=== PATIENT | female | born 1980 | race Caucasian/White ===

== ENCOUNTER 2020-10-10 01:55 | Emergency (ER) | payer BC ==
[2020-10-10] MEDS ORDERED: LIDOCAINE 1% INJ-PF (10 MG/ML) 30 ML SDV INJ ONE (03:00)
--- NOTE | 2020-10-10 04:48 | ER Document Report ---
HPI - HPI Time Seen by Provider: 10/10/20 03:00 Pain Level: 5 Context: Patient is a 40-year-old female presents emergency department with a chief complaint of a laceration to her inferior chin. Patient was drinking alcohol tonight and ended up tripping and falling and hitting her chin on the concrete. - ROS Systems Reviewed and Negative: Yes All other systems reviewed and negative - CONSTITUTIONAL Constitutional: DENIES: Fever, Chills - NEURO Neurology: DENIES: Headache, Weakness, Vision blurred - RESPIRATORY Respiratory: DENIES: Trouble Breathing, Coughing - GASTROINTESTINAL Gastrointestinal: DENIES: Abdominal Pain, Nausea, Patient vomiting - REPRODUCTIVE LMP: 10/03/20 Reproductive: DENIES: : - MUSCULOSKELETAL Musculoskeletal: DENIES: Extremity pain - DERM Skin Color: Normal Skin Problems: Laceration - Chin Past Medical History - General Information source: Patient - Social History Smoking Status: Never Smoker Family History: Reviewed & Not Pertinent Vertical Provider Document - CONSTITUTIONAL Agree With Documented VS: Yes Exam Limitations: No Limitations General Appearance: No Apparent Distress - HEENT HEENT: Normocephalic, PERRLA. negative: Atraumatic - Chin laceration - NECK Neck: Normal Inspection, Supple - RESPIRATORY Respiratory: Breath Sounds Normal, No Respiratory Distress - CARDIOVASCULAR Cardiovascular: Regular Rate, Regular Rhythm Pulses: Normal: Radial - MUSCULOSKELETAL/EXTREMETIES Musculoskeletal/Extremeties: FROM - NEURO Level of Consciousness: Awake, Alert, Appropriate Motor/Sensory: No Motor Deficit, No Sensory Deficit - DERM Integumentary: Warm, Dry, No Rash Course - Re-evaluation Re-evalutation: 10/10/20 05:52 CT of the head is unremarkable. CT of the cervical spine is also unremarkable. No facial bone fractures noted by the radiologist. See procedure note. Follow- up precautions were given. Verbal discharge instructions were given to the patient. They verbalized understanding. They are stable for discharge. - Vital Signs Vital signs: Temp Pulse Resp BP Pulse Ox 97.5 F 83 17 101/75 99 10/10/20 02:24 10/10/20 02:24 10/10/20 02:24 10/10/20 02:24 10/10/20 02:24 - Laboratory Results Critical Laboratory Results Reviewed: No Critical Results - Radiology Results Critical Radiology Results Reviewed: No Critical Results Procedures - Laceration/Wound Repair Inferior chin Wound length (cm): 2 Wound's Depth, Shape: Flap Laceration pre-procedure: Sterile PPE donned, Mickie-Clens applied Anesthetic type: 1% Lidocaine Volume Anesthetic (mLs): 4 Wound explored: Clean, No foreign body removed Irrigated w/ Saline (mLs): 200 Wound Repaired With: Sutures Suture Size/Type: 5:0, Nylon Number of Sutures: 6 Post-procedure wound care: Sterile dressing applied Adult Head Front/Back picture: 1 - Laceration Discharge - Discharge Clinical Impression: Chin laceration Qualifiers: Encounter type: initial encounter Qualified Code(s): S01.81XA - Laceration without foreign body of other part of head, initial encounter Condition: Stable Disposition: HOME, SELF-CARE Instructions: Laceration Care ([facility]) Additional Instructions: Please return to your primary doctor, the ED, or an urgent care in 5 days for suture removal. Return immediately if you develop spreading redness around the wound, pus from the wound, worsening pain, or a fever of >100.4. Keep the area clean and dry. Wash gently with soap and water twice daily and cover with antibiotic ointment.
--- NOTE | 2020-10-10 05:45 | RADIOLOGY REPORT (SQ) ---
EXAM: CT Head Without Intravenous Contrast EXAM DATE/TIME: 10/10/2020 4:52 AM CLINICAL HISTORY: The patient is 40 years old and is Female; fall; chin laceration; ETOH TECHNIQUE: Axial computed tomography images of the head/brain without intravenous contrast. Sagittal and coronal reformatted images were created and reviewed. This CT exam was performed using one or more of the following dose reduction techniques: automated exposure control, adjustment of the mA and/or kV according to patient size, and/or use of iterative reconstruction technique. COMPARISON: No relevant prior studies available. FINDINGS: BRAIN: Unremarkable. No obvious signs of acute infarct. No evidence of intracranial mass. No acute hemorrhage. VENTRICLES: Unremarkable. No ventriculomegaly. BONES/JOINTS: Unremarkable. No acute fracture. SOFT TISSUES: Unremarkable. SINUSES: Minimal scattered mucosal thickening in the paranasal sinuses. No air-fluid levels. MASTOID AIR CELLS: Unremarkable as visualized. No mastoid effusion. IMPRESSION: No acute intracranial findings.
--- NOTE | 2020-10-10 05:49 | RADIOLOGY REPORT (SQ) ---
EXAM: CT Cervical Spine Without Intravenous Contrast EXAM DATE/TIME: 10/10/2020 4:54 AM CLINICAL HISTORY: The patient is 40 years old and is Female; fall; chin laceration; ETOH TECHNIQUE: Axial computed tomography images of the cervical spine without intravenous contrast. Sagittal and coronal reformatted images were created and reviewed. This CT exam was performed using one or more of the following dose reduction techniques: automated exposure control, adjustment of the mA and/or kV according to patient size, and/or use of iterative reconstruction technique. COMPARISON: No relevant prior studies available. FINDINGS: VERTEBRAE: There is slight reversal of the normal curvature of the cervical spine. No acute fracture or subluxation. DISCS/SPINAL CANAL/NEURAL FORAMINA: Intervertebral disc heights are well-maintained. There is a small posterior disc osteophyte complex at C6-7. No significant associated spinal canal narrowing. SOFT TISSUES: No significant prevertebral soft tissue swelling. LUNG APICES: There is minimal dependent atelectasis in the upper lungs. IMPRESSION: No acute findings in the cervical spine.
[2020-10-10 06:03] VITALS: BP 103/60
== END 2020-10-10 06:01 | disposition home or self-care (01) ==
LOC: ER 01:55
DX: S01.81XA Laceration without foreign body of other part of head, initial encounter (principal); W19.XXXA Unspecified fall, initial encounter
CPT/HCPCS: 99284; 70450; 72125; 12011; J3490